=== PATIENT | female | born 1975 | race Caucasian/White ===

== ENCOUNTER → 2016-03-07 | Outpatient (CLI) | payer MEDICAID ==
--- NOTE | 2016-03-08 09:44 | MM ---
Reason for exam: screening (asymptomatic). Last mammogram was performed 1 year and 9 months ago. History: Patient had first child at age 29. Family history of breast cancer in aunt. Took hormonal contraceptives for 1 year. Physical Findings: A clinical breast exam by your physician is recommended on an annual basis and results should be correlated with mammographic findings. MG 3D Screening Mammo W/Cad Bilateral CC and MLO view(s) were taken. Prior study comparison: June 03, 2014, bilateral MG screening mammo w CAD. June 02, 2013, CAD bilateral diagnostic mammogram. There are scattered fibroglandular densities. There is no discrete abnormality. No significant changes when compared with prior studies. ASSESSMENT: Negative, BI-RAD 1 RECOMMENDATION: Routine screening mammogram of both breasts in 1 year.
== END | disposition home or self-care (01) ==
LOC: RADMAMWWP 09:55
PROVIDERS: ATTEND Obstetrics & Gynecology
DX: Z12.31 Encounter for screening mammogram for malignant neoplasm of breast (principal)
CPT/HCPCS: 77063; G0202

== ENCOUNTER 2016-11-14 13:34 | Emergency (ER) | payer MEDICAID ==
[2016-11-14 13:39] VITALS: BP 136/72; PULSE 72; RESP 18; TEMP 97.6
[2016-11-14] MEDS ORDERED: BUPIVACAINE (PF) 0.5% 30 ML VIAL SQ STA (13:52)
--- NOTE | 2016-11-14 14:07 | ED ---
General Adult HPI - General Chief complaint: Dental/Oral Stated complaint: dental pain Time Seen by Provider: 11/14/16 13:45 Source: patient, RN notes reviewed Mode of arrival: ambulatory Limitations: no limitations - History of Present Illness Initial comments: 41 yo female presents to the ER with cc of right-sided dental pain. Patient states this started yesterday she went to her dentist we placed her on Antibiotics may states she will either is going to need a crown or a root canal. She states that today she just had continued pain. She tried her treatment at home without much improvement. Denies any numbness or tingling into the neck. She denies any difficulty opening or closing mouth. Patient was concerned due to her symptoms so she thought that she should be evaluated. Patient denies any recent fever, chills, shortness of breath, chest pain, back pain, abdominal pain, nausea vomiting, numbness or tingling, dysuria or hematuria, constipation or diarrhea, headaches or visual changes, or any other current symptoms. - Related Data Home Medications Medication Instructions Recorded Confirmed ALPRAZolam [Xanax] 0.25 mg PO DAILY PRN 04/03/15 11/14/15 Acetaminophen Tab [Tylenol Tab] 650 mg PO Q6H PRN 04/03/15 11/14/15 Omeprazole [Omeprazole] 20 mg PO DAILY PRN 04/03/15 11/14/15 Naproxen 500 mg PO Q12HR PRN 11/13/15 11/14/15 Previous Rx's Medication Instructions Recorded Hydrocodone/Acetaminophen [Lortab 1 tab PO Q4HR PRN #20 tab 11/14/15 5-325 mg Tablet] Ibuprofen [Motrin] 800 mg PO Q6HR PRN #30 tab 11/14/15 traMADol HCl [Ultram] 50 mg PO Q6H PRN #20 tab 11/14/16 Allergies Allergy/AdvReac Type Severity Reaction Status Date / Time No Known Allergies Allergy Verified 11/14/16 13:39 Review of Systems ROS Statement: Those systems with pertinent positive or pertinent negative responses have been documented in the HPI. ROS Other: All systems not noted in ROS Statement are negative. Past Medical History Past Medical History: GERD/Reflux, Pneumonia Additional Past Medical History / Comment(s): hx difficulty swallowing and irritated throat,gestational diabetes,currently nasal congestion History of Any Multi-Drug Resistant Organisms: MRSA Date of last positivie culture/infection: 2003 approx MDRO Source:: rt leg insect bite Past Surgical History: Cholecystectomy Additional Past Surgical History / Comment(s): bone graft after tumor removal from bone in leg, eye surgery Past Anesthesia/Blood Transfusion Reactions: No Reported Reaction Past Psychological History: No Psychological Hx Reported Smoking Status: Never smoker Past Alcohol Use History: None Reported Past Drug Use History: None Reported - Past Family History Mother Family Medical History: Diabetes Mellitus, Hypertension Father Family Medical History: Cancer, Diabetes Mellitus, Hypertension Additional Family Medical History / Comment(s): bladder Sister(s) Family Medical History: Diabetes Mellitus, Hypertension General Exam Limitations: no limitations General appearance: alert, in no apparent distress Head exam: Present: atraumatic, normocephalic, normal inspection ENT exam: Present: normal exam, mucous membranes moist, other (Patient does appear to have pain to the 31st tooth filling in place) Neck exam: Present: normal inspection. Absent: tenderness, meningismus, lymphadenopathy Respiratory exam: Present: normal lung sounds bilaterally. Absent: respiratory distress, wheezes, rales, rhonchi, stridor Course Vital Signs 11/14/16 13:35 Temperature 97.6 F Pulse Rate 72 Respiratory 18 Rate Blood Pressure 136/72 O2 Sat by Pulse 99 Oximetry Procedures - Nerve Block Consent Obtained: verbal consent Time Out Performed: Yes Local Anesthetic Used: Marcaine 0.5% Side: right Intraoral Nerve Block: inferior alveolar Procedure Successful: Yes Complications: none Patient Tolerated Procedure: well Medical Decision Making - Medical Decision Making 41-year-old female presents emergency room chief complaint of right-sided dental pain. Patient had a dental block performed. Discussed follow-up return parameters outpatient family's questions. They stated they understood and she is given plan. SPEECH is discharged home. Disposition Clinical Impression: Fracture of tooth Disposition: HOME SELF-CARE Condition: Stable Instructions: Toothache (ED) Additional Instructions: Please use medication as discussed. Please follow up with family doctor if symptoms have not improved over the next two days. Please return to the emergency room if your symptoms increase or worsen or for any other concerns. Prescriptions: traMADol HCl [Ultram] 50 mg PO Q6H PRN #20 tab PRN Reason: Pain Referrals: Mirtha Almanza MD [Primary Care Provider] - 1-2 days
== END 2016-11-14 14:16 | disposition home or self-care (01) ==
LOC: EC 13:34
DX: S02.5XXA Fracture of tooth (traumatic), initial encounter for closed fracture (principal); X58.XXXA Exposure to other specified factors, initial encounter
CPT/HCPCS: 64400; 99282

== ENCOUNTER → 2017-06-19 | Outpatient (CLI) | payer MEDICAID ==
--- NOTE | 2017-06-20 14:26 | MM ---
Reason for exam: screening (asymptomatic). Last mammogram was performed 1 year and 3 months ago. History: Patient had first child at age 29. Family history of breast cancer in aunt. Took hormonal contraceptives for 1 year. Physical Findings: A clinical breast exam by your physician is recommended on an annual basis and results should be correlated with mammographic findings. MG 3D Screening Mammo W/Cad Bilateral CC and MLO view(s) were taken. Prior study comparison: March 07, 2016, bilateral MG 3d screening mammo w/cad. June 03, 2014, bilateral MG screening mammo w CAD. The breast tissue is almost entirely fat. There is no discrete abnormality. No significant changes when compared with prior studies. ASSESSMENT: Negative, BI-RAD 1 RECOMMENDATION: Routine screening mammogram of both breasts in 1 year.
== END | disposition home or self-care (01) ==
LOC: RADMAMWWP 10:21
PROVIDERS: ATTEND Internal Medicine
DX: Z12.31 Encounter for screening mammogram for malignant neoplasm of breast (principal)
CPT/HCPCS: 77063; 77067

== ENCOUNTER → 2017-09-18 | Outpatient (CLI) | payer MEDICAID ==
--- NOTE | 2017-09-18 12:19 | US ---
EXAMINATION TYPE: US venous doppler duplex LE BI DATE OF EXAM: 09/18/2017 12:08 PM COMPARISON: NONE CLINICAL HISTORY: Pain and swelling M79.661 M79.662 R22.41 R22.42. SIDE PERFORMED: Bilateral TECHNIQUE: The lower extremity deep venous system is examined utilizing real time linear array sonog shahzad with graded compression, doppler sonography and color-flow sonography. VESSELS IMAGED: External Iliac Vein (EIV) Common Femoral Vein Deep Femoral Vein Greater Saphenous Vein * Femoral Vein Popliteal Vein Proximal Calf Veins (* superficial vessels) Grayscale, color doppler, spectral doppler imaging performed of the deep veins of the lower extremiti es. There is normal flow, compressibility, vascular waveforms. Right Leg: Negative for DVT Left Leg: Negative for DVT IMPRESSION: No evidence for DVT at this time.
== END | disposition home or self-care (01) ==
LOC: RADUSWWP 11:30
PROVIDERS: ATTEND Internal Medicine
DX: M79.662 Pain in left lower leg (principal); M79.661 Pain in right lower leg; R22.43 Localized swelling, mass and lump, lower limb, bilateral
CPT/HCPCS: 93970

== ENCOUNTER → 2018-07-02 | Outpatient (CLI) | payer MEDICAID ==
--- NOTE | 2018-07-03 14:08 | MM ---
Reason for exam: screening (asymptomatic). Last mammogram was performed 1 year ago. History: Patient had first child at age 29. Family history of breast cancer in aunt. Took hormonal contraceptives for 1 year. Physical Findings: A clinical breast exam by your physician is recommended on an annual basis and results should be correlated with mammographic findings. MG 3D Screening Mammo W/Cad Bilateral CC and MLO view(s) were taken. Prior study comparison: June 19, 2017, bilateral MG 3d screening mammo w/cad. March 07, 2016, bilateral MG 3d screening mammo w/cad. There are scattered fibroglandular densities. There are benign appearing coarse calcifications bilaterally. There is no discrete abnormality. ASSESSMENT: Benign, BI-RAD 2 RECOMMENDATION: Routine screening mammogram of both breasts in 1 year.
== END | disposition home or self-care (01) ==
LOC: RADMAMWWP 08:10
PROVIDERS: ATTEND Internal Medicine
DX: Z12.31 Encounter for screening mammogram for malignant neoplasm of breast (principal)
CPT/HCPCS: 77063; 77067

== ENCOUNTER 2018-07-29 08:15 | Day surgery (SDC) | payer MEDICAID ==
[2018-07-24 11:31] VITALS: BMI 38.7
[~2018-07-29 08:15] MED LIST: LACTATED RINGERS 1,000 ML IV SCH
[2018-07-29 08:48] LABS: Glucose,Whole Blood 121 mg/dL (75-99)
[2018-07-29 08:51] VITALS: TEMP 97.7
[2018-07-29] MEDS ORDERED: PROPOFOL 10 MG/ML 20 ML VIAL IV ONE (08:58)
--- NOTE | 2018-07-29 09:04 | P.GSHP ---
History of Present Illness H&P Date: 07/29/18 Chief Complaint: Iron deficiency anemia Patient here today for colonoscopy. She has been followed for low iron and anemia. Denies rectal bleeding or melena. No family history of colon cancer. No bowel related complaints. Past Medical History Past Medical History: Diabetes Mellitus, GERD/Reflux, Pneumonia Additional Past Medical History / Comment(s): hx difficulty swallowing previously,hx gestational diabetes, past hx of one migraine, anemia, occ urinary leakage History of Any Multi-Drug Resistant Organisms: MRSA Date of last positivie culture/infection: 2003 approx MDRO Source:: rt leg insect bite Past Surgical History: Cholecystectomy, Tubal Ligation Additional Past Surgical History / Comment(s): bone graft after cyst removal from bone in leg, dominique eye surgery Past Anesthesia/Blood Transfusion Reactions: No Reported Reaction Past Psychological History: Anxiety, Depression Additional Psychological History / Comment(s): occ panic attack Smoking Status: Never smoker Past Alcohol Use History: Rare Past Drug Use History: None Reported - Past Family History Mother Family Medical History: Diabetes Mellitus, Hypertension Father Family Medical History: Cancer, Diabetes Mellitus, Hypertension Additional Family Medical History / Comment(s): bladder Sister(s) Family Medical History: Diabetes Mellitus, Hypertension Medications and Allergies Home Medications Medication Instructions Recorded Confirmed Type Omeprazole 20 mg PO HS 04/03/15 07/29/18 History ALPRAZolam [Xanax] 0.5 mg PO BID PRN 07/27/18 07/29/18 History Ferrous Sulfate [Feosol] 325 mg PO DAILY 07/27/18 07/29/18 History metFORMIN HCL [Glucophage] 500 mg PO BID 07/27/18 07/29/18 History Allergies Allergy/AdvReac Type Severity Reaction Status Date / Time No Known Allergies Allergy Verified 07/29/18 08:31 Surgical - Exam Vital Signs Temp Pulse Resp BP Pulse Ox 97.7 F 69 15 133/76 100 07/29/18 08:38 07/29/18 08:38 07/29/18 08:38 07/29/18 08:38 07/29/18 08:38 Physical exam: General: Well-developed, well-nourished HEENT: Normocephalic, sclerae nonicteric Abdomen: Nontender, nondistended Extremities: No edema Neuro: Alert and oriented Results - Labs Abnormal Lab Results - Last 24 Hours (Table) 07/29/18 Range/Units 08:45 POC Glucose (mg/dL) 121 H (75-99) mg/dL Assessment and Plan (1) Iron deficiency anemia Narrative/Plan: Will proceed with colonoscopy at this time. Current Visit: Yes Status: Acute Code(s): D50.9 - IRON DEFICIENCY ANEMIA, UNSPECIFIED SNOMED Code(s): 19033809
[2018-07-29 09:26] VITALS: RESP 12
--- NOTE | 2018-07-29 09:26 | P.PCN ---
Date of Procedure: 07/29/18 Procedure(s) Performed: PREOPERATIVE DIAGNOSIS: Iron deficiency anemia POSTOPERATIVE DIAGNOSIS: Diverticulosis PROCEDURE: Colonoscopy ANESTHESIA: MAC SURGEON: Sancho Salcedo M.D. SPECIMENS: None ENDOSCOPIC PROCEDURE: The patient was placed on the endoscopy table in the left decubitus position. The Olympus colonoscope was inserted into the anus and passed under direct visualization to the base of the cecum. The appendiceal orifice was visualized. From that point the scope was slowly withdrawn inspe cting all surfaces carefully. There were no neoplastic inflammatory or polypoid lesions throughout the cecum, ascending, transverse, descending, sigmoid and rectum. There was moderate left-sided diverticulosis noted. Digital rectal examination was normal. The patient was taken to the recovery room in stable condition per anesthesia guidelines. RECOMMENDATIONS: Increase fiber. Follow-up colonoscopy 10 years.
[2018-07-29 09:53] VITALS: BP 119/76; PULSE 78
== END 2018-07-29 09:51 | disposition home or self-care (01) ==
LOC: ORWHC2ENDO 08:15
PROVIDERS: ATTEND Surgery
DX: K57.30 Diverticulosis of large intestine without perforation or abscess without bleeding (principal); D50.9 Iron deficiency anemia, unspecified; E11.9 Type 2 diabetes mellitus without complications; K21.9 Gastro-esophageal reflux disease without esophagitis; Z87.01 Personal history of pneumonia (recurrent); Z90.49 Acquired absence of other specified parts of digestive tract; Z86.14 Personal history of Methicillin resistant Staphylococcus aureus infection; Z83.3 Family history of diabetes mellitus; Z82.49 Family history of ischemic heart disease and other diseases of the circulatory system; Z79.899 Other long term (current) drug therapy; Z79.84 Long term (current) use of oral hypoglycemic drugs
CPT/HCPCS: 81025; 45378; J2704

== ENCOUNTER → 2018-10-08 | Outpatient (CLI) | payer MEDICAID ==
[2018-10-08 07:24] LABS: HCT 35.1 % (34.0-46.0); HGB 11.4 gm/dL (11.4-16.0); MCH 26.6 pg (25.0-35.0); MCHC 32.6 g/dL (31.0-37.0); MCV 81.7 fL (80.0-100.0); Mean Platelet Volume 8.6; Platelet Count 183 k/uL (150-450); RDW 15.1 % (11.5-15.5); WBC 7.2 k/uL (3.8-10.6)
[2018-10-08 16:01] LABS: African American GFR (CKD) 103.2 (60.0-200.0); Albumin 3.9 g/dL (3.80-4.90); Albumin/Globulin Ratio 1.95 (1.60-3.17); Anion Gap 4.5 mmol/L (4.00-12.00); BUN/Creat Ratio 18.75 Ratio (12.00-20.00); Calcium 8.3 mg/dL (8.7-10.3); Carbon Dioxide 26.5 mmol/L (21.6-31.8); LDL Cholesterol,Calculated 98.8 mg/dL (0.0-131.0); Potassium 4.9 mmol/L (3.5-5.5); Total Bilirubin 0.2 mg/dL (0.2-1.2); Total Protein 5.9 g/dL (6.2-8.2); VLDL Calculation 10.2 mg/dL (5.00-40.00)
== END | disposition home or self-care (01) ==
LOC: LABWHC1 07:09
PROVIDERS: ATTEND Internal Medicine
DX: D64.9 Anemia, unspecified (principal); R73.03 Prediabetes
CPT/HCPCS: 36415; 80053; 80061; 83036; 84443; 85027

== ENCOUNTER → 2019-03-31 | Outpatient (CLI) | payer MEDICAID ==
[2019-03-31 08:44] LABS: HCT 33.8 % (34.0-46.0); HGB 10.6 gm/dL (11.4-16.0); Hypochromasia Slight; MCH 24.8 pg (25.0-35.0); MCHC 31.5 g/dL (31.0-37.0); MCV 78.6 fL (80.0-100.0); Mean Platelet Volume 9.4; Platelet Count 148 k/uL (150-450); RDW 14.8 % (11.5-15.5); WBC 7.4 k/uL (3.8-10.6)
[2019-03-31 16:24] LABS: African American GFR (CKD) 103.2 (60.0-200.0); Albumin 4.1 g/dL (3.80-4.90); Albumin/Globulin Ratio 1.95 (1.60-3.17); Anion Gap 6.4 mmol/L (4.00-12.00); BUN/Creat Ratio 16.25 Ratio (12.00-20.00); Calcium 9.2 mg/dL (8.7-10.3); Carbon Dioxide 27.6 mmol/L (21.6-31.8); Chol/HDL Ratio 3.82; Globulin 2.1 g/dL (1.6-3.3); LDL Cholesterol,Calculated 105.8 mg/dL (0.0-131.0); Total Bilirubin 0.5 mg/dL (0.2-1.2); Total Protein 6.2 g/dL (6.2-8.2); VLDL Calculation 18.2 mg/dL (5.00-40.00)
[2019-03-31 18:41] LABS: Hemoglobin A1C 6.1 % (4.0-6.0)
== END | disposition home or self-care (01) ==
LOC: LABWHC1 07:40
PROVIDERS: ATTEND Internal Medicine
DX: E11.9 Type 2 diabetes mellitus without complications (principal); K21.9 Gastro-esophageal reflux disease without esophagitis
CPT/HCPCS: 36415; 80053; 80061; 83036; 84443; 85027

== ENCOUNTER → 2019-04-30 | Outpatient (CLI) | payer MEDICAID | END | disposition home or self-care (01) | LOC: PROCWHC3 11:23 | PROVIDERS: ATTEND Nurse Practitioner | DX: R05 Cough (principal); R50.9 Fever, unspecified | CPT/HCPCS: 87502 ==

== ENCOUNTER → 2019-09-07 | Outpatient (CLI) | payer MEDICAID ==
--- NOTE | 2019-09-08 11:20 | MM ---
Reason for exam: screening (asymptomatic). Last mammogram was performed 1 year and 2 months ago. History: Patient had first child at age 29. Family history of breast cancer in aunt. Took hormonal contraceptives for 1 year. Physical Findings: A clinical breast exam by your physician is recommended on an annual basis and results should be correlated with mammographic findings. MG 3D Screening Mammo W/Cad Bilateral CC and MLO view(s) were taken. Prior study comparison: July 02, 2018, bilateral MG 3d screening mammo w/cad. June 19, 2017, bilateral MG 3d screening mammo w/cad. There are scattered fibroglandular densities. There is no discrete abnormality. No significant changes when compared with prior studies. ASSESSMENT: Negative, BI-RAD 1 RECOMMENDATION: Routine screening mammogram of both breasts in 1 year.
== END | disposition home or self-care (01) ==
LOC: RADMAMWWP 08:32
PROVIDERS: ATTEND Internal Medicine
DX: Z12.31 Encounter for screening mammogram for malignant neoplasm of breast (principal)
CPT/HCPCS: 77063; 77067

== ENCOUNTER → 2019-11-10 | Outpatient (CLI) | payer MEDICAID ==
[2019-11-10 08:59] LABS: HCT 35.3 % (34.0-46.0); HGB 11.1 gm/dL (11.4-16.0); Hypochromasia Moderate; MCH 25.2 pg (25.0-35.0); MCHC 31.6 g/dL (31.0-37.0); MCV 79.9 fL (80.0-100.0); Mean Platelet Volume 9.3; Platelet Count 184 k/uL (150-450); RBC 4.41 m/uL (3.80-5.40); RDW 14.6 % (11.5-15.5); WBC 7.1 k/uL (3.8-10.6)
[2019-11-10 17:39] LABS: African American GFR (CKD) 88.9 (60.0-200.0); Albumin 4.3 g/dL (3.80-4.90); Albumin/Globulin Ratio 2.15 (1.60-3.17); Anion Gap 8.6 mmol/L (4.00-12.00); BUN/Creat Ratio 22.22 Ratio (12.00-20.00); Calcium 9.2 mg/dL (8.7-10.3); Carbon Dioxide 24.4 mmol/L (21.6-31.8); Chol/HDL Ratio 4.1; Non-African American GFR(CKD) 76.7 (60.0-200.0); Potassium 4.7 mmol/L (3.5-5.5); Total Bilirubin 0.4 mg/dL (0.2-1.2); Total Protein 6.3 g/dL (6.2-8.2)
[2019-11-10 19:01] LABS: Hemoglobin A1C 6.2 % (4.0-6.0)
== END | disposition home or self-care (01) ==
LOC: LABWHC1 07:19
PROVIDERS: ATTEND Internal Medicine
DX: D64.9 Anemia, unspecified (principal); R73.9 Hyperglycemia, unspecified
CPT/HCPCS: 36415; 80053; 80061; 83036; 84443; 85027

== ENCOUNTER → 2020-04-11 | Outpatient (CLI) | payer MEDICAID ==
--- NOTE | 2020-04-12 08:04 | USB ---
Reason for exam: clinical finding. History: Patient had first child at age 29. Family history of breast cancer in maternal aunt at age 40. Took hormonal contraceptives for 1 year. Physical Findings: Nurse Summary: soft, nodular, indented area, no lump (nurse dw). US Breast BILAT Right complete breast ultrasound includes all four quadrants, the retroareolar region and axilla. Finding demonstrates a 0.4 x 0.4 x 0.4cm oval, hypoechoic lesion at 10 o'clock. Left complete breast ultrasound includes all four quadrants, the retroareolar region and axilla. Finding demonstrates a 0.3 x 0.4 x 0.3cm oval, hypoechoic lesion at 3 o'clock and a 1.0 x 0.3 x 0.4cm oval, hypoechoic lesion at 4 o'clock appears as vessel with flow, possible thrombus. These results were verbally communicated with the patient and result sheet given to the patient on 04/08/20. ASSESSMENT: Probably benign, BI-RAD 3 RECOMMENDATION: Clinical management of both breasts. Manage patient on a clinical basis.
--- NOTE | 2020-04-12 08:05 | MM ---
Reason for exam: clinical finding. Last mammogram was performed 7 months ago. History: Patient had first child at age 29. Family history of breast cancer in maternal aunt at age 40. Took hormonal contraceptives for 1 year. MG 3D Diag Mammo W/Cad DANITZA Bilateral CC and MLO view(s) were taken. Prior study comparison: September 07, 2019, bilateral MG 3d screening mammo w/cad. July 02, 2018, bilateral MG 3d screening mammo w/cad. There are scattered fibroglandular densities. No significant new findings when compared with previous films. These results were verbally communicated with the patient and result sheet given to the patient on 04/11/20. ASSESSMENT: Probably benign, BI-RAD 3 RECOMMENDATION: Follow-up diagnostic mammogram of both breasts in 6 months. Manage patient on a clinical basis.
== END | disposition home or self-care (01) ==
LOC: RADUSWWP 14:46
PROVIDERS: ATTEND Internal Medicine
DX: N64.4 Mastodynia (principal); Z80.3 Family history of malignant neoplasm of breast
CPT/HCPCS: 77062; 77066

== ENCOUNTER → 2020-10-18 | Outpatient (CLI) | payer MEDICAID ==
--- NOTE | 2020-10-18 08:25 | MM ---
Reason for exam: follow-up at short interval from prior study. Last mammogram was performed 6 months ago. History: Patient had first child at age 29. Family history of breast cancer in maternal aunt at age 40. Took hormonal contraceptives for 1 year. Physical Findings: Nurse did not find any significant physical abnormalities on exam. MG 3D Diag Mammo W/Cad DANITZA Bilateral CC and MLO view(s) were taken. Prior study comparison: April 11, 2020, bilateral MG 3d diag mammo w/cad DANITZA. September 07, 2019, bilateral MG 3d screening mammo w/cad. The breast tissue is heterogeneously dense. This may lower the sensitivity of mammography. There is no discrete abnormality. No significant new findings when compared with previous films. These results were verbally communicated with the patient and result sheet given to the patient on 10/18/20. ASSESSMENT: Benign, BI-RAD 2 RECOMMENDATION: Routine screening mammogram of both breasts in 1 year.
== END | disposition home or self-care (01) ==
LOC: RADMAMWWP 07:06
PROVIDERS: ATTEND Internal Medicine
DX: R92.2 Inconclusive mammogram (principal); Z80.3 Family history of malignant neoplasm of breast
CPT/HCPCS: 77062; 77066

== ENCOUNTER → 2020-12-29 | Outpatient (CLI) | payer MEDICAID ==
[2020-12-29 18:03] LABS: African American GFR (CKD) 100.2 (60.0-200.0); Albumin 4.2 g/dL (3.8-4.9); Albumin/Globulin Ratio 1.78 (1.60-3.17); Anion Gap 11.7 mmol/L (4.00-12.00); BUN/Creat Ratio 16.05 Ratio (12.00-20.00); Calcium 9.7 mg/dL (8.7-10.3); Carbon Dioxide 23.4 mmol/L (21.6-31.8); Chol/HDL Ratio 3.9 Ratio; Globulin 2.4 g/dL (1.6-3.3); HDL Cholesterol 44.6 mg/dL (40.00-60.00); LDL Cholesterol,Calculated 115.1 mg/dL (0.0-131.0); Non-African American GFR(CKD) 86.5 (60.0-200.0); Potassium 4.4 mmol/L (3.5-5.5); Total Bilirubin 0.4 mg/dL (0.30-1.20); Total Protein 6.6 g/dL (6.2-8.2); Triglycerides 71.6 mg/dL (0.00-149.00); VLDL Calculation 14.32 mg/dL (5.00-40.00)
[2020-12-29 19:26] LABS: Basophils # (A) 0.03 X 10*3/uL (0.00-0.10); Basophils % (A) 0.4 %; Eosinophils # (A) 0.09 X 10*3/uL (0.04-0.35); Eosinophils % (A) 1.3 %; HCT 38.8 % (37.2-46.3); HGB 12.1 g/dL (12.0-15.0); Lymphocytes # (A) 1.94 X 10*3/uL (0.90-5.00); Lymphocytes % (A) 28.5 %; MCH 26.7 pg (27.0-32.0); MCHC 31.2 g/dL (32.0-37.0); MCV 85.7 fL (80.0-97.0); Mean Platelet Volume 12.5 fL (9.5-12.2); Monocytes # (A) 0.28 X 10*3/uL (0.20-1.00); Monocytes % (A) 4.1 %; Neutrophils # (A) 4.44 X 10*3/uL (1.80-7.70); Neutrophils % (A) 65.4 %; Platelet Count 158 X 10*3/uL (140-440); RBC 4.53 X 10*6/uL (4.10-5.20); RDW 14.5 % (11.5-14.5)
[2020-12-29 22:02] LABS: Microalbumin Creatinine Ratio <30 mg/g Creat (0-30)
== END | disposition home or self-care (01) ==
LOC: LABWHC1 08:11
PROVIDERS: ATTEND Internal Medicine
DX: Z13.6 Encounter for screening for cardiovascular disorders (principal); E11.65 Type 2 diabetes mellitus with hyperglycemia
CPT/HCPCS: 36415; 80053; 80061; 82043; 82570; 83036; 84443; 85025

== ENCOUNTER → 2021-02-13 | Outpatient (CLI) | payer MEDICAID, OTHER | END | disposition home or self-care (01) | LOC: LABWHC1 07:55 | PROVIDERS: ATTEND Emergency Medicine | DX: Z20.822 Contact with and (suspected) exposure to COVID-19 (principal) | CPT/HCPCS: 87635 ==

== ENCOUNTER → 2021-02-14 | Outpatient (CLI) | payer MEDICAID, OTHER | END | disposition home or self-care (01) | LOC: LABWHC1 08:19 | PROVIDERS: ATTEND Emergency Medicine | DX: Z20.822 Contact with and (suspected) exposure to COVID-19 (principal) | CPT/HCPCS: 87635 ==

== ENCOUNTER → 2022-01-01 | Outpatient (CLI) | payer MEDICAID ==
--- NOTE | 2022-01-02 08:39 | MM ---
Reason for Exam: Screening (asymptomatic). Last mammogram was performed 1 year(s) and 3 month(s) ago. Patient History: Menarche at age 9. Patient has no children. Patient used Hormonal Contraceptives for 1 year. Maternal aunt had breast cancer, age 40. Last menstrual period: 01/24/2021 Risk Values: Tammy 5 year model risk: 1.1%. NCI Lifetime model risk: 11.1%. Prior Study Comparison: 06/03/2014 Bilateral Screening Mammogram, [facility]. 03/07/2016 Bilateral Screening Mammogram, [facility]. 06/19/2017 Bilateral Screening Mammogram, [facility]. 07/02/2018 Bilateral Screening Mammogram, [facility]. 09/07/2019 Bilateral Screening Mammogram, [facility]. 04/11/2020 Bilateral Diagnostic Ultrasound, [facility]. 04/11/2020 Bilateral Diagnostic Mammogram, [facility]. 10/18/2020 Bilateral Diagnostic Mammogram, [facility]. Tissue Density: There are scattered fibroglandular densities. Findings: Analyzed By CAD. There is no suspicious group of microcalcifications or new suspicious mass in either breast. Overall Assessment: Negative, BI-RAD 1 Management: Screening Mammogram of both breasts in 1 year. A clinical breast exam by your physician is recommended on an annual basis and results should be correlated with mammographic findings. Electronically signed and approved by: Les Jacob M.D. Radiologis
== END | disposition home or self-care (01) ==
LOC: RADMAMWWP 15:51
PROVIDERS: ATTEND Internal Medicine
DX: Z12.31 Encounter for screening mammogram for malignant neoplasm of breast (principal); Z80.3 Family history of malignant neoplasm of breast
CPT/HCPCS: 77063; 77067

== ENCOUNTER → 2022-01-21 | Outpatient (CLI) | payer MEDICAID ==
[2022-01-21 10:40] LABS: HCT 38.7 % (37.2-46.3); HGB 12.9 g/dL (12.0-15.0); MCH 28.7 pg (27.0-32.0); MCHC 33.3 g/dL (32.0-37.0); Mean Platelet Volume 11.4 fL (9.5-12.2); NRBC Per 100 WBC 0 /100 WBCS (0.0-0.0); Platelet Count 157 X 10*3/uL (140-440); RDW 12.5 % (11.5-14.5); WBC 7.22 X 10*3/uL (4.50-10.00)
[2022-01-21 11:10] LABS: ALT 18 U/L (8-44); AST 28 U/L (13-35); Albumin/Globulin Ratio 1.48 (1.60-3.17); Alkaline Phosphatase 99 U/L (41-126); Blood Urea Nitrogen 14.8 mg/dL (9.0-27.0); Calcium 9.5 mg/dL (8.7-10.3); Carbon Dioxide 24.4 mmol/L (20.0-27.5); Chloride 103 mmol/L (96-109); Chol/HDL Ratio 4.47 Ratio; Globulin 2.7 g/dL (1.6-3.3); Glucose 184 mg/dL (70-110); LDL Cholesterol,Calculated 125.4 mg/dL (0.0-131.0); Non-African American GFR(CKD) 87.2 (60.0-200.0); Potassium 4.5 mmol/L (3.5-5.5); Sodium 137 mmol/L (135-145); Total Protein 6.7 g/dL (6.2-8.2)
== END ==
LOC: LABWHC1 07:44
PROVIDERS: ATTEND Internal Medicine
DX: E78.5 Hyperlipidemia, unspecified (principal); K21.9 Gastro-esophageal reflux disease without esophagitis
CPT/HCPCS: 36415; 80053; 80061; 84443; 85027

== ENCOUNTER → 2022-07-10 | Outpatient (CLI) | payer MEDICAID ==
[2022-07-10 11:02] LABS: HGB 13.5 g/dL (12.0-15.0); MCH 28.4 pg (27.0-32.0); MCHC 33.8 g/dL (32.0-37.0); MCV 84.2 fL (80.0-97.0); Mean Platelet Volume 11.4 fL (9.5-12.2); NRBC Per 100 WBC 0 /100 WBCS (0.0-0.0); Platelet Count 154 X 10*3/uL (140-440); RBC 4.75 X 10*6/uL (4.10-5.20); RDW 12.3 % (11.5-14.5); WBC 6.95 X 10*3/uL (4.50-10.00)
[2022-07-10 11:39] LABS: ALT 24 U/L (8-44); AST 16 U/L (13-35); African American GFR (CKD) 99.7 (60.0-200.0); Albumin 4.3 g/dL (3.8-4.9); Albumin/Globulin Ratio 1.73 (1.60-3.17); Alkaline Phosphatase 104 U/L (41-126); BUN/Creat Ratio 23.63 Ratio (12.00-20.00); Calcium 9.6 mg/dL (8.7-10.3); Chloride 103 mmol/L (96-109); Chol/HDL Ratio 4.56 Ratio; Globulin 2.5 g/dL (1.6-3.3); Glucose 275 mg/dL (70-110); LDL Cholesterol,Calculated 130.8 mg/dL (0.0-131.0); Non-African American GFR(CKD) 86.1 (60.0-200.0); Potassium 4.9 mmol/L (3.5-5.5); Sodium 138 mmol/L (135-145); Total Protein 6.8 g/dL (6.2-8.2)
== END | disposition home or self-care (01) ==
LOC: LABWHC1 07:27
PROVIDERS: ATTEND Internal Medicine
DX: E78.5 Hyperlipidemia, unspecified (principal); R73.9 Hyperglycemia, unspecified
CPT/HCPCS: 36415; 80053; 80061; 83036; 84443; 85027

== ENCOUNTER → 2022-10-22 | Outpatient (CLI) | payer MEDICAID ==
[2022-10-22 15:59] LABS: ALT 25 U/L (8-44); AST 17 U/L (13-35); Albumin 4.3 d/dL (3.8-4.9); Albumin/Globulin Ratio 1.95 Ratio (1.60-3.17); Alkaline Phosphatase 99 U/L (41-126); BUN/Creat Ratio 18.88 Ratio (12.00-20.00); Blood Urea Nitrogen 15.1 mg/dL (9.0-27.0); Calcium 9.2 mg/dL (8.7-10.3); Carbon Dioxide 24.2 mmol/L (21.6-31.8); Chloride 108 mmol/L (96-109); Estradiol <20.0 pg/mL; Globulin 2.2 d/dL (1.6-3.3); Glucose 176 mg/dL (70-110); LDL Cholesterol,Calculated 122.8 mg/dL (0.0-131.0); Potassium 4.6 mmol/L (3.5-5.5); Sodium 141 mmol/L (135-145); Total Bilirubin 0.5 mg/dL (0.3-1.2); Total Protein 6.5 d/dL (6.2-8.2)
[2022-10-22 16:03] LABS: HCT 40.1 % (37.2-46.3); HGB 13.1 d/dL (12.0-15.0); MCH 28.7 pg (27.0-32.0); MCHC 32.7 d/dL (32.0-37.0); MCV 87.7 FL (80.0-97.0); Mean Platelet Volume 11.8 FL (9.5-12.2); NRBC Per 100 WBC 0 X 10*3/uL (0.00-0.01); Platelet Count 169 X 10*3/uL (140-440); RBC 4.57 X 10*6/uL (4.10-5.20); WBC 6.39 X 10*3/uL (4.50-10.00)
[2022-10-22 16:37] LABS: Testosterone <10.00 ng/dL (9.01-47.94)
== END | disposition home or self-care (01) ==
LOC: LABWHC1 10:18
PROVIDERS: ATTEND Obstetrics & Gynecology
DX: E11.9 Type 2 diabetes mellitus without complications (principal); N95.2 Postmenopausal atrophic vaginitis; N95.1 Menopausal and female climacteric states; Z79.84 Long term (current) use of oral hypoglycemic drugs
CPT/HCPCS: 36415; 80053; 80061; 82670; 83001; 83036; 84144; 84403; 84443; 85027

== ENCOUNTER → 2022-12-27 | Outpatient (CLI) | payer MEDICAID ==
--- NOTE | 2022-12-28 11:13 | MR ---
EXAMINATION TYPE: MR knee RT wo con DATE OF EXAM: 12/27/2022 COMPARISON: None HISTORY: Right inner knee pain, painful kneecap, locking, and swelling. TECHNIQUE: Multiplanar, multisequence imaging of the right knee is performed without IV contrast. FINDINGS: There is a small focal contusion of the anterior condylar region of the tibial plateau. There is no d iscrete fracture. There is no joint effusion. The cruciate ligaments and lateral collateral ligament is intact. There is mild strain of the medial collateral ligament and there is a vertical tear through the body of the medial meniscus. Small focal meniscal capsular separation in this region cannot be excluded. There is mild degenerative change of the lateral and medial compartments in the evidence for mild car tilaginous thinning. There is a small focal cartilaginous defect in the tibial cartilage in the later al compartment. There is mild osteoarthritic change of the patellofemoral compartment and the medial facet where there are tiny subchondral cysts and small cartilage clefts. IMPRESSION: 1. Small tibial bone contusion without discrete fracture. 2. Tear of the medial meniscus and mild strain of the medial collateral ligament. Small focal menisca l capsular separation cannot be excluded. 3. Osteoarthritic change in all 3 compartments of the knee as described above. 4. No injury to the lateral collateral ligament or cruciate ligaments.
== END | disposition home or self-care (01) ==
LOC: RADMRIMAIN 15:54
PROVIDERS: ATTEND Orthopaedic Surgery Sports Medicine
DX: M17.11 Unilateral primary osteoarthritis, right knee (principal); M23.303 Other meniscus derangements, unspecified medial meniscus, right knee; M23.631 Other spontaneous disruption of medial collateral ligament of right knee

== ENCOUNTER → 2023-04-22 | Outpatient (CLI) | payer MEDICAID ==
[2023-04-22 15:32] LABS: HCT 39.9 % (37.2-46.3); HGB 13.4 g/dL (12.0-15.0); MCH 28.9 pg (27.0-32.0); MCHC 33.6 g/dL (32.0-37.0); Mean Platelet Volume 11.2 FL (9.5-12.2); NRBC Per 100 WBC 0 X 10*3/uL (0.00-0.01); Platelet Count 162 X 10*3/uL (140-440); RBC 4.64 X 10*6/uL (4.10-5.20); RDW 12.8 % (11.5-14.5); WBC 6.84 X 10*3/uL (4.50-10.00)
[2023-04-22 16:49] LABS: BUN/Creat Ratio 16.89 Ratio (12.00-20.00); Blood Urea Nitrogen 15.2 mg/dL (9.0-27.0); Carbon Dioxide 25.3 mmol/L (21.6-31.8); Chloride 107 mmol/L (96-109); Chol/HDL Ratio 3.71 Ratio; Glucose 129 mg/dL (70-110); LDL Cholesterol,Calculated 115.5 mg/dL (0.0-131.0); Sodium 143 mmol/L (135-145); VLDL Calculation 17.52 mg/dL (5.00-40.00)
[2023-04-22 16:50] LABS: ALT 20 U/L (8-44); AST 16 U/L (13-35); Albumin 4.3 g/dL (3.8-4.9); Albumin/Globulin Ratio 1.87 Ratio (1.60-3.17); Alkaline Phosphatase 102 U/L (41-126); Calcium 9.5 mg/dL (8.7-10.3); Globulin 2.3 g/dL (1.6-3.3); Total Bilirubin 0.4 mg/dL (0.3-1.2); Total Protein 6.6 g/dL (6.2-8.2)
== END | disposition home or self-care (01) ==
LOC: LABWHC1 08:36
PROVIDERS: ATTEND Internal Medicine
DX: E11.9 Type 2 diabetes mellitus without complications (principal); M19.90 Unspecified osteoarthritis, unspecified site
CPT/HCPCS: 36415; 80053; 80061; 83036; 84443; 85027

== ENCOUNTER → 2023-04-25 | Outpatient (CLI) | payer MEDICAID ==
--- NOTE | 2023-04-25 13:09 | MM ---
Reason for Exam: Screening (asymptomatic). Last mammogram was performed 1 year(s) and 4 month(s) ago. Patient History: Menarche at age 9. Patient has no children. Postmenopausal. Patient used Hormonal Contraceptives for 1 year. Maternal aunt had breast cancer, age 40. Risk Values: Tammy 5 year model risk: 1.1%. NCI Lifetime model risk: 11.0%. Prior Study Comparison: 04/11/2020 Bilateral Diagnostic Mammogram, [facility]. 10/18/2020 Bilateral Diagnostic Mammogram, [facility]. 01/01/2022 Bilateral MG 3D screening mammo w/cad, [facility]. Tissue Density: The breast tissue is almost entirely fat. Findings: Analyzed By CAD. The pattern is symmetrical. Benign spherical calcifications are present bilaterally. No suspicious groups of microcalcifications, spiculated or lobular masses, architectural distortion or other secondary signs of malignancy are mammographically apparent. Overall Assessment: Benign, BI-RAD 2 Management: Screening Mammogram of both breasts in 1 year. A negative mammogram report should not preclude additional follow up of suspicious palpable abnormalities. Patient should continue monthly self breast exam. A clinical breast exam by your physician is recommended on an annual basis and results should be correlated with mammographic findings. Electronically signed and approved by: Lázaro Gonzalez D.O. Radiologis
== END | disposition home or self-care (01) ==
LOC: RADMAMWWP 07:10
PROVIDERS: ATTEND Internal Medicine
DX: Z12.31 Encounter for screening mammogram for malignant neoplasm of breast (principal); Z78.0 Asymptomatic menopausal state; Z80.3 Family history of malignant neoplasm of breast
CPT/HCPCS: 77067

== ENCOUNTER → 2023-11-27 | Outpatient (CLI) | payer MEDICAID ==
[2023-11-27 10:47] LABS: ALT 12 U/L (8-44); AST 15 U/L (13-35); Albumin 4.1 g/dL (3.8-4.9); Albumin/Globulin Ratio 1.71 Ratio (1.60-3.17); Alkaline Phosphatase 101 U/L (41-126); BUN/Creat Ratio 21.12 Ratio (12.00-20.00); Blood Urea Nitrogen 16.9 mg/dL (9.0-27.0); Calcium 8.9 mg/dL (8.7-10.3); Carbon Dioxide 23.6 mmol/L (21.6-31.8); Chloride 107 mmol/L (96-109); Chol/HDL Ratio 4.44 Ratio; Globulin 2.4 g/dL (1.6-3.3); Glucose 129 mg/dL (70-110); LDL Cholesterol,Calculated 115.2 mg/dL (0.0-131.0); Potassium 4.2 mmol/L (3.5-5.5); Sodium 141 mmol/L (135-145); Total Bilirubin 0.4 mg/dL (0.3-1.2); Total Protein 6.5 g/dL (6.2-8.2)
[2023-11-27 10:50] LABS: Basophils # (A) 0.03 X 10*3/uL (0.00-0.10); Basophils % (A) 0.5 %; Eosinophils # (A) 0.08 X 10*3/uL (0.04-0.35); Eosinophils % (A) 1.3 %; HCT 37.8 % (37.2-46.3); HGB 12.9 g/dL (12.0-15.0); Lymphocytes # (A) 1.77 X 10*3/uL (0.90-5.00); Lymphocytes % (A) 29.5 %; MCH 29.7 pg (27.0-32.0); MCHC 34.1 g/dL (32.0-37.0); MCV 86.9 FL (80.0-97.0); Mean Platelet Volume 11.7 FL (9.5-12.2); Monocytes # (A) 0.19 X 10*3/uL (0.20-1.00); Monocytes % (A) 3.2 %; NRBC Per 100 WBC 0 X 10*3/uL (0.00-0.01); Neutrophils % (A) 65.2 %; Platelet Count 150 X 10*3/uL (140-440); RBC 4.35 X 10*6/uL (4.10-5.20); RDW 12.4 % (11.5-14.5); WBC 5.99 X 10*3/uL (4.50-10.00)
== END | disposition home or self-care (01) ==
LOC: LABWHC1 07:16
PROVIDERS: ATTEND Internal Medicine
DX: E11.9 Type 2 diabetes mellitus without complications (principal); K21.9 Gastro-esophageal reflux disease without esophagitis; I27.20 Pulmonary hypertension, unspecified; R53.83 Other fatigue; R53.81 Other malaise; R06.09 Other forms of dyspnea
CPT/HCPCS: 36415; 80053; 80061; 83036; 84443; 85025

== ENCOUNTER 2024-01-30 05:50 | Day surgery (SDC) | payer MEDICAID ==
[2024-01-27 15:12] VITALS: BMI 38.5
[2024-01-30 06:38] VITALS: RESP 16; TEMP 97.1
[2024-01-30] MEDS: LIDOCAINE 1% (10MG/ML) FOR IV START INTRADERMA STA (06:41)
[2024-01-30] MEDS: LACTATED RINGERS 1,000 ML IV SCH (06:41)
[2024-01-30] MEDS: IV FLUID CONTINUATION 1,000 ML IV ONE (06:42)
[2024-01-30] MEDS ORDERED: LIDOCAINE 1% INJ 10MG/ML (20 ML MDV) ONE (06:57)
[2024-01-30] MEDS ORDERED: PROPOFOL 10 MG/ML 20 ML VIAL IV ONE (06:57)
[2024-01-30 07:04] LABS: Glucose,Whole Blood 132 mg/dL (70-110)
--- NOTE | 2024-01-30 07:18 | P.PCN ---
Date of Procedure: 01/30/24 Procedure(s) Performed: BRIEF HISTORY: Patient is a 48-year-old, pleasant, white female scheduled for an upper endoscopy as a part of evaluation of longstanding history of GERD and intermittent dysphagia to solids. PROCEDURE PERFORMED: Esophagogastroduodenoscopy biopsy. PREOPERATIVE DIAGNOSIS: Longstanding history of GERD intermittent dysphagia to solids. IV sedation per anesthesia. PROCEDURE: After informed consent was obtained, the patient was brought into the endoscopy unit. IV sedation was administered by Anesthesia under continuous monitoring. Initially the Olympus GIF-140 video endoscope was inserted into the mouth. Esophagus intubated without any difficulty. It was gradually advanced into the stomach and duodenum and carefully examined. The bulb and the second part of the duodenum appeared normal. The scope at this time was withdrawn to the stomach, adequately insufflated with air, and upon careful examination, mucosa of the antrum, linear areas of erythema consistent with gastritis and biopsies were done from this area. There are multiple small gastric polyps noted in the gastric body which were biopsied. Rest of the body, cardia and the fundus appeared normal. The scope was then withdrawn into the esophagus. The GE junction was located at 39 cm from the incisors. The esophagus appeared normal. There were no erosions or ulcerations seen, no evidence of esophageal stricture. Multiple biopsies were done from mid and distal esophagus and the patient tolerated the procedure well. IMPRESSION: 1. Mild antral gastritis. 2. Small gastric polyps 3. No evidence of esophagitis or esophageal stricture. RECOMMENDATIONS: The findings of this examination were discussed with the patient as well as her family. She was advised to follow-up with the biopsy results. Continue with omeprazole 20 mg daily and follow antireflux measures.
[2024-01-30 07:37] VITALS: BP 134/73; PULSE 69
== END 2024-01-30 07:52 | disposition home or self-care (01) ==
LOC: ORWHC2ENDO 05:50
PROVIDERS: ATTEND Internal Medicine Gastroenterology
DX: K29.50 Unspecified chronic gastritis without bleeding (principal); K31.7 Polyp of stomach and duodenum; K21.9 Gastro-esophageal reflux disease without esophagitis; E11.9 Type 2 diabetes mellitus without complications; Z79.899 Other long term (current) drug therapy; Z79.84 Long term (current) use of oral hypoglycemic drugs
CPT/HCPCS: 88305; 43239; J2003; J2704

== ENCOUNTER → 2024-02-10 | Outpatient (CLI) | payer MEDICAID ==
--- NOTE | 2024-02-10 11:34 | CA ---
Transthoracic Echo Report Name: Juan Helms Age: 48 Gender: F : 1975 Exam Date: 02/10/2024 08:29 Exam Location: [facility] Ht (in): 67 Wt (lb): 250 Ordering Physician: Delaney Hinds MD ([id number]) Attending/Referring Phys: Milled Rice Broker Maye Matias RDCS Procedure CPT: Indications: R00.2 palpitations Cardiac Hx: Technical Quality: Fair Contrast 1: Total Dose (mL): Contrast 2: Total Dose (mL): MEASUREMENTS (Male / Female) Normal Values 2D ECHO LV Diastolic Diameter PLAX 4.5 cm 4.2 - 5.9 / 3.9 - 5.3 cm LV Systolic Diameter PLAX 2.5 cm IVS Diastolic Thickness 1.2 cm 0.6 - 1.0 / 0.6 - 0.9 cm LVPW Diastolic Thickness 1.4 cm 0.6 - 1.0 / 0.6 - 0.9 cm LV Relative Wall Thickness 0.6 RV Internal Dim ED PLAX 2.7 cm LA Systolic Diameter LX 3.9 cm 3.0 - 4.0 / 2.7 - 3.8 cm LV Diastolic Volume MOD BP 61.9 cm??? 67 - 155 / 56 - 104 cm??? LV Systolic Volume MOD BP 22.0 cm??? 22 - 58 / 19 - 49 cm??? LV Ejection Fraction MOD BP 64.4 % >= 55 % LV Cardiac Index MOD BP 1212.3 cm???/min???m??? LV Diastolic Volume MOD 4C 55.0 cm??? LV Systolic Volume MOD 4C 20.1 cm??? LV Ejection Fraction MOD 4C 63.5 % LV Cardiac Index MOD 4C 1062.6 cm???/min???m??? LV Diastolic Length 4C 7.1 cm LV Systolic Length 4C 5.8 cm LV Diastolic Volume MOD 2C 61.5 cm??? LV Systolic Volume MOD 2C 23.4 cm??? LV Ejection Fraction MOD 2C 61.9 % LV Cardiac Index MOD 2C 1158.3 cm???/min???m??? LV Diastolic Length 2C 8.2 cm LV Systolic Length 2C 6.2 cm M-MODE Aortic Root Diameter MM 3.0 cm LA Systolic Diameter MM 4.0 cm LA Ao Ratio MM 1.3 AV Cusp Separation MM 2.1 cm DOPPLER Mitral E Point Velocity 62.6 cm/s Mitral A Point Velocity 74.7 cm/s Mitral E to A Ratio 0.8 MV Deceleration Time 297.7 ms MV E' Velocity 6.9 cm/s Mitral E to MV E' Ratio 9.0 TR Peak Velocity 187.1 cm/s TR Peak Gradient 14.0 mmHg FINDINGS Left Ventricle Left ventricular ejection fraction is estimated at 55-60%. Mildly increased septal wall thickness. Normal left ventricular systolic function with no obvious regional wall motion abnormalities. Left ventricular cavity size normal. Right Ventricle Normal right ventricular size and function. Right ventricular systolic pressure within normal limits. Right Atrium Normal right atrial size. Left Atrium Normal left atrial size. Mitral Valve Structurally normal mitral valve. Trace mitral regurgitation. No mitral stenosis. Aortic Valve Trileaflet aortic valve. No aortic valve stenosis or regurgitation. Tricuspid Valve Structurally normal tricuspid valve. Trace to mild tricuspid regurgitation. No tricuspid stenosis. Pulmonic Valve Structurally normal pulmonic valve. Trace pulmonic regurgitation. No pulmonic stenosis. Pericardium No pericardial or pleural effusion. Aorta Normal size aortic root and proximal ascending aorta. CONCLUSIONS Normal LV function Previewed by: Dr. Yosef Clemens MD (Electronically Signed) Final Date: 10 February 2024 11:33
== END | disposition home or self-care (01) ==
LOC: RADECHMAIN 08:24
PROVIDERS: ATTEND Internal Medicine Interventional Cardiology
DX: R00.2 Palpitations (principal)
CPT/HCPCS: 93306

== ENCOUNTER → 2024-03-03 | Outpatient (CLI) | payer MEDICAID ==
--- NOTE | 2024-03-05 13:24 | CA ---
Stress Echo Report Juan Helms Age: 48 Gender: F : 1975 Exam Date: 03/03/2024 08:35 Exam Location: [facility] Ht (in): 67 Wt (lb): 240 Ordering Physician: Delaney Hinds MD ([id number]) Referring Physician: YFN,, Waxer Operator: Maye Matias RDCS Technologist Procedure CPT: Indication: R00.2 palpitations ICD-9 Codes: Rhythm: Patient History: DIABETIC Cardiac Medications: PALPITATIONS, DIABETIC Medications in past 24 hours: Contrast: Definity Stress Results Protocol: Chong Total dose(mL): Exercise Duration (min:sec): 8:[address] Depression (mm): Angina Score: Gonzalez Score: METS: 9.7 Resting HR: 82 Resting BP: 114 / 73 Peak HR: 177 Peak BP: 193 / 64 Max Predicted HR: 170 104 % Max Predicted HR Target HR: 145 Double Product: [id number] Stress Summary: BP Response: Reason for Termination: MAX EXERTION/TARGET HR Cardiac Symptoms: NO SYMPTOMS ECG Analysis Resting ECG: Normal sinus rhythm heart rate 62 bpm Stress ECG: No significant ST-T wave changes that are diagnostic for ischemia Arrhythmia: No significant arrhythmias noticed during the stress test. Occasional PACs and PVCs noticed during recovery. Echo Analysis Resting Echo: Normal global and segmental systolic function at rest. No resting regional wall motion abnormality Peak Echo Analysis: Normal augmentation of global and segmental systolic function with no stress-induced regional wall motion normality MEASUREMENTS (Male/Female) Normal Values CONCLUSIONS Fair exercise tolerance for age achieving 9.7 METS Normal hemodynamic and clinical response to treadmill exercise Nonischemic ECG and echocardiographic response to treadmill exercise Overall low probability for severe obstructive coronary artery disease Dr Daniel Conner (Electronically Signed) Final Date: 05 March 2024 13:24
== END | disposition home or self-care (01) ==
LOC: RADNMMAIN 08:10
PROVIDERS: ATTEND Internal Medicine Interventional Cardiology
DX: R00.2 Palpitations (principal)
CPT/HCPCS: 93351; Q9957

== ENCOUNTER → 2024-05-21 | Outpatient (CLI) | payer MEDICAID ==
[2024-05-22 02:01] LABS: ALT 17 U/L (8-44); AST 18 U/L (13-35); Albumin 4.7 g/dL (3.8-4.9); Albumin/Globulin Ratio 1.81 Ratio (1.60-3.17); Alkaline Phosphatase 108 U/L (41-126); BUN/Creat Ratio 19.22 Ratio (12.00-20.00); Blood Urea Nitrogen 17.3 mg/dL (9.0-27.0); Calcium 9.7 mg/dL (8.7-10.3); Chloride 105 mmol/L (96-109); Chol/HDL Ratio 4.33 Ratio; Globulin 2.6 g/dL (1.6-3.3); Glucose 108 mg/dL (70-110); LDL Cholesterol,Calculated 134.5 mg/dL (0.0-131.0); Potassium 4.4 mmol/L (3.5-5.5); Sodium 142 mmol/L (135-145); Total Bilirubin 0.4 mg/dL (0.3-1.2); Total Protein 7.3 g/dL (6.2-8.2)
[2024-05-22 02:08] LABS: Basophils # (A) 0.04 X 10*3/uL (0.00-0.10); Basophils % (A) 0.5 %; Eosinophils # (A) 0.16 X 10*3/uL (0.04-0.35); Eosinophils % (A) 1.9 %; HCT 43.1 % (37.2-46.3); Lymphocytes # (A) 3.05 X 10*3/uL (0.90-5.00); Lymphocytes % (A) 35.8 %; MCH 28.9 pg (27.0-32.0); MCHC 32.5 g/dL (32.0-37.0); MCV 88.9 FL (80.0-97.0); Monocytes # (A) 0.28 X 10*3/uL (0.20-1.00); Monocytes % (A) 3.3 %; NRBC Per 100 WBC 0 X 10*3/uL (0.00-0.01); Neutrophils # (A) 4.96 X 10*3/uL (1.80-7.70); Neutrophils % (A) 58.1 %; Platelet Count 186 X 10*3/uL (140-440); RBC 4.85 X 10*6/uL (4.10-5.20); RDW 12.9 % (11.5-14.5); WBC 8.52 X 10*3/uL (4.50-10.00)
== END | disposition home or self-care (01) ==
LOC: LABWHC1 16:18
PROVIDERS: ATTEND Internal Medicine
DX: E11.9 Type 2 diabetes mellitus without complications (principal); K21.9 Gastro-esophageal reflux disease without esophagitis; R00.2 Palpitations; Z79.899 Other long term (current) drug therapy
CPT/HCPCS: 36415; 80053; 80061; 83036; 84443; 85025

== ENCOUNTER → 2024-06-09 | Outpatient (CLI) | payer MEDICAID ==
--- NOTE | 2024-06-09 11:30 | MM ---
Reason for Exam: Screening (asymptomatic). Last mammogram was performed 1 year(s) and 1 month(s) ago. Patient History: Menarche at age 9. Patient has no children. Postmenopausal. Patient used Hormonal Contraceptives for 1 year. Maternal aunt had breast cancer, age 40. Risk Values: Tammy 5 year model risk: 1.2%. NCI Lifetime model risk: 10.6%. Prior Study Comparison: 10/18/2020 Bilateral Diagnostic Mammogram, [facility]. 01/01/2022 Bilateral MG 3D screening mammo w/cad, [facility]. 04/25/2023 Bilateral MG screening mammo w CAD, [facility]. Tissue Density: The breasts are almost entirely fatty. Findings: Analyzed By CAD. There is no suspicious group of microcalcifications or new suspicious mass in either breast. Overall Assessment: Benign, BI-RAD 2 Management: Screening Mammogram of both breasts in 1 year. . Patient should continue monthly self-breast exams. A clinical breast exam by your physician is recommended on an annual basis. This exam should not preclude additional follow-up of suspicious palpable abnormalities. Note on Tammy scores and lifetime risk: 1. A Tammy score greater than 3% is considered moderate risk. If this is the case, consider specialist referral to assess eligibility for a risk reducing agent. 2. If overall lifetime risk for the development of breast cancer is 20% or higher, the patient may qualify for future screening with alternating mammogram and breast MRI. [facility], , 06/09/2024 11:27 AM. Electronically signed and approved by: Les Jacob M.D. Radiologis
== END | disposition home or self-care (01) ==
LOC: RADMAMWWP 10:57
PROVIDERS: ATTEND Internal Medicine
DX: Z12.31 Encounter for screening mammogram for malignant neoplasm of breast (principal); R92.313 Mammographic fatty tissue density, bilateral breasts; Z78.0 Asymptomatic menopausal state; Z92.0 Personal history of contraception; Z80.3 Family history of malignant neoplasm of breast
CPT/HCPCS: 77063; 77067